=== PATIENT | female | born 1970 | race Caucasian/White ===

== ENCOUNTER 2023-08-22 09:26 | Emergency (ER) | payer BC ==
[~2023-08-22] VITALS: Ht 167.6 cm; Wt 91.0 kg
[2023-08-22 09:45] VITALS: O2SAT 98
[2023-08-22 12:41] VITALS: BP 121/46; PULSE 67; RESP 18; TEMP 98.7
== END 2023-08-22 12:42 | disposition home or self-care (01) ==
LOC: ER 09:26
DX: S01.81XA Laceration without foreign body of other part of head, initial encounter (principal); Z90.710 Acquired absence of both cervix and uterus; Z98.890 Other specified postprocedural states; Z85.9 Personal history of malignant neoplasm, unspecified; W18.39XA Other fall on same level, initial encounter; Y93.89 Activity, other specified; Y92.89 Other specified places as the place of occurrence of the external cause; Y99.8 Other external cause status
CPT/HCPCS: 12011; 70486; 99284